=== PATIENT | female | born 1980 | race Caucasian/White ===

== ENCOUNTER 2018-11-22 12:55 | Emergency (ER) | payer OTHER ==
[~2018-11-22] VITALS: Ht 170.2 cm; Wt 64.3 kg
[2018-11-22] MEDS ORDERED: HYDR-3965 PO (13:34)
[2018-11-22] MEDS ORDERED: ibuprofen 200mg tablet PO ONE (13:35)
[2018-11-22 13:50] VITALS: BP 99/61
== END 2018-11-22 13:54 | disposition home or self-care (01) ==
LOC: ER 12:57
DX: O03.9 Complete or unspecified spontaneous abortion without complication (principal); O99.611 Diseases of the digestive system complicating pregnancy, first trimester; K21.9 Gastro-esophageal reflux disease without esophagitis; Z3A.09 9 weeks gestation of pregnancy; Z79.899 Other long term (current) drug therapy
CPT/HCPCS: 99283